=== PATIENT | male | born 1965 | race African-American/Black ===

== ENCOUNTER 2020-12-25 16:07 | Inpatient (IN) | payer BC ==
[~2020-12-25] VITALS: Ht 190.5 cm; Wt 133.6 kg
[2020-12-25] MEDS ORDERED: ASPirin 81 mg TAB PO ONE (16:15)
[2020-12-25 16:32] LABS: Basophils # (auto) 0 10 ^3/uL (0-0.2); Basophils % (auto) 0.3 % (0.0-2.0); Eosinophils # (auto) 0.1 10 ^3/uL (0-0.8); Eosinophils % (auto) 1.2 % (0.0-7.0); Hematocrit 43.9 % (41.0-53.0); Lymphocytes # (auto) 1.8 10 ^3/uL (0.4-5.4); Lymphocytes % (auto) 27.7 % (10.0-50.0); Mean Corpuscular Hgb Conc. 34.3 g/dL (32.0-36.0); Mean Corpuscular Volume 87.4 fL (80.0-100.0); Monocytes # (auto) 0.6 10 ^3/uL (0-1.3); Monocytes % (auto) 8.9 % (0.0-12.0); Neutrophils % (auto) 61.9 % (37.0-80.0); Nucleated Red Blood Cells % 0.2 %; Red Blood Cells 5.02 10^6/uL (4.5-5.90); Red Cell Distribution Width 12.3 % (11.8-14.3); White Blood Cell 6.5 10^3/uL (4.4-10.8)
[2020-12-25 16:53] LABS: Alanine Aminotransferase 63 U/L (16-61); Albumin 3.7 g/dL (3.4-5.0); Anion Gap 2 (5-15); Blood Urea Nitrogen 6 mg/dL (7-18); Calcium 8.7 mg/dL (8.5-10.1); Carbon Dioxide 29 mmol/L (21-32); Chloride 108 mmol/L (98-107); Glucose 116 mg/dL (74-106); Potassium 3.8 mmol/L (3.5-5.1); Sodium 139 mmol/L (136-145)
[2020-12-25 16:58] LABS: Alkaline Phosphatase 108 U/L (45-117); Aspartate Aminotransferase 51 U/L (15-37); Bilirubin, Total 0.6 mg/dL (0.2-1.0); GFR African American 81 mL/min; GFR Non-African American 67 mL/min; Total Protein 7.6 g/dL (6.4-8.2)
[2020-12-25] MEDS ORDERED: ACETAMINOPHEN 325 MG TAB PO PRN (22:00)
[2020-12-25] MEDS ORDERED: MORPHINE SULFATE 4 MG/ML SYR/VIAL IV PRN (22:00)
[2020-12-25] MEDS: SODIUM CHLOR 0.9% PF (SALINE LOCK) 10ML VIAL/SYR IV SCH (22:00)
[2020-12-25] MEDS ORDERED: DOCUSATE SOD 100 MG CAP PO PRN (22:00)
[2020-12-25] MEDS ORDERED: NITROGLYCERIN 0.4 MG SL TAB SL PRN (22:00)
[2020-12-25] MEDS ORDERED: MORPHINE SULFATE INJECTION 2 MG/ML SYRG IV PRN (22:00)
[2020-12-25] MEDS ORDERED: hydrALAZINE HCL 20 MG/ML VL IV PRN (22:45)
[2020-12-25] MEDS: HYDROcodone-ACET 5/325MG TAB PO PRN (23:03)
[2020-12-25] MEDS: ONDANSETRON HCL 4 MG/2 ML VIAL IV PRN (23:03)
[2020-12-26] MEDS: HYDROcodone-ACET 5/325MG TAB PO PRN ×2 (05:12→16:00)
[2020-12-26] MEDS: SODIUM CHLOR 0.9% PF (SALINE LOCK) 10ML VIAL/SYR IV SCH ×3 (06:05→21:39)
[2020-12-26] MEDS: ONDANSETRON HCL 4 MG/2 ML VIAL IV PRN ×2 (06:06→22:39)
[2020-12-26 07:25] LABS: Basophils # (auto) 0 10 ^3/uL (0-0.2); Basophils % (auto) 0.3 % (0.0-2.0); Eosinophils # (auto) 0.1 10 ^3/uL (0-0.8); Eosinophils % (auto) 1.8 % (0.0-7.0); Hematocrit 41.1 % (41.0-53.0); Hemoglobin 13.8 g/dL (13.5-17.5); Lymphocytes # (auto) 1.8 10 ^3/uL (0.4-5.4); Lymphocytes % (auto) 30.9 % (10.0-50.0); Mean Corpuscular Hemoglobin 29.5 pg (28.0-32.0); Mean Corpuscular Hgb Conc. 33.7 g/dL (32.0-36.0); Mean Corpuscular Volume 87.5 fL (80.0-100.0); Monocytes # (auto) 0.6 10 ^3/uL (0-1.3); Monocytes % (auto) 10.1 % (0.0-12.0); Neutrophils # (auto) 3.3 10 ^3/uL (1.6-8.6); Neutrophils % (auto) 56.9 % (37.0-80.0); Nucleated Red Blood Cells % 0.2 %; Red Blood Cells 4.69 10^6/uL (4.5-5.90); Red Cell Distribution Width 12.4 % (11.8-14.3); White Blood Cell 5.8 10^3/uL (4.4-10.8)
[2020-12-26] MEDS ORDERED: METO25TA93 PO (07:25)
[2020-12-26 07:26] LABS: Albumin 3.3 g/dL (3.4-5.0); Calcium 8.1 mg/dL (8.5-10.1); Potassium 3.8 mmol/L (3.5-5.1)
[2020-12-26 07:31] LABS: Bilirubin, Total 0.7 mg/dL (0.2-1.0); Total Protein 6.9 g/dL (6.4-8.2)
[2020-12-26] MEDS: ASPirin 81 mg TAB PO SCH (09:08)
[2020-12-26] MEDS: PANTOPRAZOLE 40 MG/10 ML VIAL INJ IV SCH (09:08)
[2020-12-26] MEDS: METOPROLOL SUCCINATE XL 50 MG TAB PO SCH (09:08)
[2020-12-26] MEDS: ENOXAPARIN SOD 60 MG/0.6 ML SYRINGE SC SCH ×2 (09:09→21:40)
[2020-12-26] MEDS: ADENOSINE 107 MG in GIVE UN-DILUTED 0 ML IV STA ×2 (10:25→10:34)
[2020-12-26 20:15] VITALS: BP 135/87
[2020-12-26] MEDS ORDERED: ATORVASTATIN 20 MG TAB PO SCH (22:00)
[2020-12-27 00:30] VITALS: BP 135/87
[2020-12-27] MEDS: HYDROcodone-ACET 5/325MG TAB PO PRN (01:11)
[2020-12-27] MEDS ORDERED: METO25TA93 PO (03:08)
[2020-12-27] MEDS ORDERED: OMEP-434 PO (03:08)
[2020-12-27 05:38] VITALS: BP 133/78
[2020-12-27] MEDS: SODIUM CHLOR 0.9% PF (SALINE LOCK) 10ML VIAL/SYR IV SCH ×2 (06:00→13:59)
[2020-12-27 07:30] VITALS: BP 129/85
[2020-12-27] MEDS ORDERED: ONDANSETRON HCL 4 MG/2 ML VIAL IV ONE (09:30)
[2020-12-27] MEDS ORDERED: LORazepam 2MG/ML-1ML VIAL IV PRN (09:30)
[2020-12-27] MEDS: PANTOPRAZOLE 40 MG/10 ML VIAL INJ IV SCH (09:49)
[2020-12-27] MEDS: ASPirin 81 mg TAB PO SCH (09:49)
[2020-12-27] MEDS: ENOXAPARIN SOD 60 MG/0.6 ML SYRINGE SC SCH (09:50)
[2020-12-27] MEDS: METOPROLOL SUCCINATE XL 50 MG TAB PO SCH (11:54)
[2020-12-27 13:00] VITALS: BP 140/89
[2020-12-27 14:04] VITALS: BP 140/89
== END 2020-12-27 15:00 | disposition home or self-care (01) | DRG 311 ==
LOC: ER 16:07 → TELE 16:08 → DOU IN ADS 12-26 20:15 → TELE-E-ADS 12-26 20:15 → DOU IN ADS 12-27 00:04
PROVIDERS: ADMIT Nurse Practitioner Family; ATTEND Family Medicine
PROC: 4A12XM4 Monitoring of Cardiac Stress, External Approach (ICD-10-PCS; principal; 2020-12-26)
PROC: 3E073KZ Introduction of Other Diagnostic Substance into Coronary Artery, Percutaneous Approach (ICD-10-PCS; 2020-12-26)
DX: I24.9 Acute ischemic heart disease, unspecified (principal); E66.01 Morbid (severe) obesity due to excess calories; I10 Essential (primary) hypertension; Z20.822 Contact with and (suspected) exposure to COVID-19; Z88.0 Allergy status to penicillin; Z79.899 Other long term (current) drug therapy; Z68.36 Body mass index [BMI] 36.0-36.9, adult
CPT/HCPCS: 36415; 71046; 78452; 80053; 83036; 84443; 84484; 85025; 87426; 93005; 93017; 93306; 96365; 96375; C9113; G0378; J0153; J2405